=== PATIENT | male | born 1970 | race American Indian/Alaskan Native ===

== ENCOUNTER 2017-03-20 14:46 | Emergency (ER) | payer MEDICAID, OTHER ==
[2017-03-20 15:05] VITALS: TEMP 99.3
[2017-03-20] MEDS ORDERED: Oxycodone/Acetaminophen 5/325 mg Tab PO STA (15:26)
--- NOTE | 2017-03-20 16:05 | RAD ---
PROCEDURE: Right Ankle Radiographs. HISTORY: ankle injury COMPARISON: None FINDINGS: BONES: There has been internal fixation of the right ankle. There is bony fusion between the distal fibula and tibia. JOINTS: Normal. No osteoarthritis. Ankle mortise maintained. Talar dome intact SOFT TISSUES: Normal. OTHER FINDINGS: None. IMPRESSION: No acute findings
--- NOTE | 2017-03-20 16:11 | ED PDOC ---
Arrival/HPI - General Chief Complaint: Lower Extremity Problem/Injury Time Seen by Provider: 03/20/17 15:26 - History of Present Illness Narrative History of Present Illness (Text): 46 y/o M c history of R ankle fracture s/p ORIF p/w R ankle pain x 2 days after he twisted his ankle. He denies numbness, motor weakness. Past Medical History - Cardiac Hx Cardiac Disorders: Yes Hx Hypertension: Yes - Pulmonary Hx Respiratory Disorders: No - Neurological Hx Neurological Disorder: No - HEENT Hx HEENT Disorder: No - Renal Hx Renal Disorder: No - Endocrine/Metabolic Hx Endocrine Disorders: No - Hematological/Oncological Hx Blood Disorders: No - Integumentary Hx Dermatological Disorder: No - Musculoskeletal/Rheumatological Hx Musculoskeletal Disorders: No - Gastrointestinal Hx Gastrointestinal Disorders: No - Genitourinary/Gynecological Hx Genitourinary Disorders: No - Psychiatric Hx Psychophysiologic Disorder: No Hx Substance Use: No - Surgical History Hx Orthopedic Surgery: Yes Family/Social History Family/Social History: No Known Family HX Smoking Status: Current Some Days Smoker Hx Alcohol Use: No Hx Substance Use: No Allergies/Home Meds Allergies/Adverse Reactions: Allergies seafood Allergy (Uncoded 03/20/17 15:05) ANAPHYLAXIS Review of Systems - Physician Review All systems were reviewed & negative as marked: Yes - Review of Systems Constitutional: absent: Fevers Cardiovascular: absent: Chest Pain Physical Exam - Physical Exam Narrative Physical Exam (Text): Gen: NAD Ext: R ankle with minimal tenderness at lateral malleolus. No obvious swelling. DP pulse 2+. Dry skin overlying. Vital Signs Temp Pulse Resp BP Pulse Ox 03/20/17 15:02 99.3 F 102 H 16 127/86 98 Medical Decision Making ED Course and Treatment: PROCEDURE: Right Ankle Radiographs. HISTORY: ankle injury COMPARISON: None FINDINGS: BONES: There has been internal fixation of the right ankle. There is bony fusion between the distal fibula and tibia. JOINTS: Normal. No osteoarthritis. Ankle mortise maintained. Talar dome intact SOFT TISSUES: Normal. OTHER FINDINGS: None. IMPRESSION: No acute findings Checked [employer] registry, patient with 1 prior Percocet prescription, no other prescriptions listed in prior year. Will discharge with Percocet, f/u Dr. Mancini , counseled on risk of opioids. - RAD Interpretation Radiology Orders: 03/20/17 15:27 ANKLE RIGHT 3 VIEWS ROUTINE [RAD] Stat - Medication Orders Current Medication Orders: Discontinued Medications Oxycodone/Acetaminophen (Percocet 5/325 Mg Tab) 1 tab PO STAT STA Stop: 03/20/17 15:27 Disposition/Present on Arrival - Present on Arrival Any Indicators Present on Arrival: No History of DVT/PE: No History of Uncontrolled Diabetes: No Urinary Catheter: No History of Decub. Ulcer: No History Surgical Site Infection Following: None - Disposition Have Diagnosis and Disposition been Completed?: Yes Diagnosis: Ankle sprain Disposition: HOME/ ROUTINE Disposition Time: 16:12 Patient Plan: Discharge Condition: STABLE Discharge Instructions (ExitCare): Ankle Sprain (ED) Prescriptions: oxyCODONE/Acetaminophen [Percocet 5/325 mg Tab] 1 tab PO Q6 #10 tab Referrals: Isai Mancini MD [Primary Care Provider] - Follow up with primary
[2017-03-20 16:17] VITALS: BP 128/75; PULSE 97; RESP 18
[2017-03-20 16:18] VITALS: O2SAT 99
[2017-03-20] MEDS ORDERED: Phenylephrine 0.5% Nasal Spray (15 ml) ONE (21:46)
== END 2017-03-20 16:17 | disposition home or self-care (01) ==
LOC: ED 14:46
DX: S93.401A Sprain of unspecified ligament of right ankle, initial encounter (principal); X50.1XXA Overexertion from prolonged static or awkward postures, initial encounter; I10 Essential (primary) hypertension; F17.200 Nicotine dependence, unspecified, uncomplicated